=== PATIENT | male | born 1950 | race African-American/Black ===

== ENCOUNTER 2017-04-10 12:52 | Emergency (ER) | payer MEDICAID ==
[~2017-04-10] VITALS: Ht 175.3 cm; Wt 84.0 kg
[~2017-04-10 12:52] MED LIST: CLON.1 PO; HYDR100T2 PO; LISI-593 PO; LORTA5 PO; POLY119S PO; PROC60TA PO; Z.0.WALKERFRONT
[2017-04-10 12:54] VITALS: BP 170/114; PULSE 102; RESP 20; TEMP 98; O2SAT 96
--- NOTE | 2017-04-10 13:45 | PD ---
Data Data Last Documented VS Vital Signs Date Time Temp Pulse Resp B/P (MAP) Pulse Ox O2 Delivery O2 Flow Rate FiO2 04/10/17 12:54 98.0 102 20 170/114 (132) 96 Room Air MDM Supervised Visit with [place]: No Narrative Course This is a 66-year-old male who presents to the emergency department with headache for 2 days. He's never had a headache before. I think he requires additional workup in a medical pod given his age. Basic labs and CT will be ordered. Scripts No Active Prescriptions or Reported Meds Andreina James MD Apr 10, 2017 13:45
[2017-04-10 14:00] VITALS: BP 150/98; PULSE 89; RESP 16; O2SAT 97
--- NOTE | 2017-04-10 15:15 | RADRPT ---
EXAM DATE/TIME: 04/10/2017 14:52 [facility] COMPARISON: No previous studies available for comparison. INDICATIONS : Cephalgia. RADIATION DOSE: 56.35 CTDIvol (mGy) MEDICAL HISTORY : Hepatitis C. Hypertension. SURGICAL HISTORY : None. ENCOUNTER: Initial ACUITY: 1 day PAIN SCALE: 5/10 LOCATION: cranial TECHNIQUE: Multiple contiguous axial images were obtained of the head. Using automated exposure control and adj ustment of the mA and/or kV according to patient size, radiation dose was kept as low as reasonably a chievable to obtain optimal diagnostic quality images. DICOM format image data is available electro nically for review and comparison. 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 There is moderate patchy and confluent hypodens ity in the bilateral centrum semiovale and periventricular white matter characteristic of chronic yumi rovascular ischemic disease. No signs of hemorrhage, acute infarct, or mass. No fractures are seen. 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 Ajay Mora MD on April 10, 2017 at 15:13 Board Certified Radiologist. This report was verified electronically.
[2017-04-10] MEDS ORDERED: ACETAMINOPHEN 325 MG TAB PO ONE (16:00)
--- NOTE | 2017-04-10 16:12 | PD ---
HPI Chief Complaint: Headache Time Seen by Provider: 14:44 Travel History International Travel<30 days: No Contact w/Intl Traveler<30days: No Traveled to known affect area: No History of Present Illness HPI 66 year-old woman who presents to the emergency department complaining of frontal headache. Headache started 2 days ago. It came on gradually throughout the day. Is been constant since onset. No real aggravating or alleviating factors. The history of significant headaches in the past. States his equilibrium has felt a little bit off and these had cough cold symptoms for the past couple days as well. No fevers or chills. No other complaints. History Past Medical History Medical History: Denies Significant Hx Tetanus Vaccination: < 5 Years Influenza Vaccination: No Past Surgical History Surgical History: No Previous Surgery Social History Alcohol Use: No Tobacco Use: No Allergies-Medications (Allergen,Severity, Reaction): Coded Allergies: penicillin G (Unverified Allergy, Severe, Hives, 04/10/17) Reported Meds & Prescriptions Reported Meds & Active Scripts Active No Active Prescriptions or Reported Medications Review of Systems Except as stated in HPI: all other systems reviewed are Neg Physical Exam Narrative GENERAL: 66 year-old man, generally well-appearing, no acute distress. SKIN: Focused skin assessment warm/dry. HEAD: Atraumatic. Normocephalic. EYES: Pupils equal and round. No scleral icterus. No injection or drainage. ENT: No nasal bleeding or discharge. Mucous membranes pink and moist. Some facial tenderness especially in the right frontal. NECK: Trachea midline. No JVD. CARDIOVASCULAR: Regular rate and rhythm. No murmur appreciated. RESPIRATORY: No accessory muscle use. Clear to auscultation. Breath sounds equal bilaterally. GASTROINTESTINAL: Abdomen soft, non-tender, nondistended. Hepatic and splenic margins not palpable. MUSCULOSKELETAL: No obvious deformities. No edema. NEUROLOGICAL: Awake and alert. No obvious cranial nerve deficits. Motor grossly within normal limits. Normal speech. Data Data Last Documented VS Vital Signs Date Time Temp Pulse Resp B/P (MAP) Pulse Ox O2 Delivery O2 Flow Rate FiO2 04/10/17 12:54 98.0 102 20 170/114 (132) 96 Room Air Orders Orders Ct Brain W/O Iv Contrast(Rout) (04/10/17 ) ^ Insert Iv (04/10/17 13:46) Acetaminophen (Tylenol) (04/10/17 16:00) [facility] Medical Decision Making Medical Screen Exam Complete: Yes Emergency Medical Condition: Yes Differential Diagnosis Headache, ICH, tumor, sinusitis, other Narrative Course Medical decision making 66-year-old man who presents to the emergency department complaining of frontal headache. Some sinus tenderness. Some cough cold symptoms with it. I think this is likely acute sinusitis. Recommend against anabiotic's, supportive treatment only at this time., Diagnosis Primary Impression: Headache Patient Instructions: General Instructions Additional Instructions: Take [id number] analgesics as needed for headache for no more than 2-3 days. Return to the emergency department for any worsening headache, confusion, numbness tingling or weakness, or any other new or worsening symptoms. Follow-up with your primary doctor in 2-3 days. Med/Other Pt SpecificInfo: Prescription(s) given Scripts No Active Prescriptions or Reported Meds Disposition: 01 DISCHARGE HOME Condition: Stable Aly Jauregui MD Apr 10, 2017 16:12
== END 2017-04-10 16:36 | disposition home or self-care (01) ==
LOC: NEPE 12:52
DX: R51 Headache (principal); R05 Cough; Z88.0 Allergy status to penicillin
CPT/HCPCS: 70450; 99284